=== PATIENT | female | born 1960 | race Caucasian/White ===

== ENCOUNTER 2017-05-02 17:39 | Emergency (ER) | payer MEDICAID ==
[~2017-05-02] VITALS: Ht 160 cm; Wt 90.9 kg
[~2017-05-02 17:39] MED LIST: CHOL200016 PO; ESOM20CA31 PO; MELO-107 PO; MOME17N NASAL
[2017-05-02 17:44] VITALS: BP 155/68
== END 2017-05-02 19:30 | disposition left against medical advice (07) ==
LOC: EMS 17:40
DX: R30.0 Dysuria (principal); R11.0 Nausea; R22.0 Localized swelling, mass and lump, head; Z53.21 Procedure and treatment not carried out due to patient leaving prior to being seen by health care provider